=== PATIENT | female | born 1980 | race Caucasian/White ===

== ENCOUNTER 2016-11-07 13:47 | Emergency (ER) | payer OTHER ==
[2016-11-07 14:01] VITALS: BP 128/75
--- NOTE | 2016-11-07 14:10 | UC ---
Throat Pain/Nasal Irvin HPI - HPI Summary HPI Summary: SORE THROAT X 2 DAYS NO COUGH, NO NASAL CONGESTION , NO FEVER , + CHILLS, + BODY ACHES - History of Current Complaint Chief Complaint: UCRespiratory Stated Complaint: SORE THROAT Time Seen by Provider: 11/07/16 14:03 Hx Obtained From: Patient Hx Last Menstrual Period: pt on depo shot ?: No Onset/Duration: Gradual Onset, Lasting Days - 2, Still Present Severity: Moderate Cough: None Associated Signs & Symptoms: Negative: Sinus Discomfort, Nasal Discharge, Fever , Rash - Allergies/Home Medications Allergies/Adverse Reactions: Allergies Allergy/AdvReac Type Severity Reaction Status Date / Time No Known Allergies Allergy Verified 11/07/16 14:00 Home Medications: Home Medications Anxiety Med 1 tab PO DAILY 11/07/16 [History] PMH/Surg Hx/FS Hx/Imm Hx Previously Healthy: Yes Endocrine History Of: Denies: Diabetes Cardiovascular History Of: Denies: Cardiac Disorders, Hypertension Respiratory History Of: Denies: Asthma - Surgical History Surgical History: Yes Surgery Procedure, Year, and Place: appendectomy. 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 - Family History Known Family History: Negative: Diabetes - Social History Alcohol Use: None Substance Use Type: None Smoking Status (MU): Never Smoked Tobacco When Did the Patient Quit Smoking/Using Tobacco: 8 years ago Review of Systems Constitutional: Chills, Fatigue Skin: Negative Eyes: Negative ENT: Sore Throat Respiratory: Negative Cardiovascular: Negative Gastrointestinal: Negative All Other Systems Reviewed And Are Negative: Yes Physical Exam Triage Information Reviewed: Yes Appearance: Well-Appearing, No Pain Distress, Well-Nourished Vital Signs: Initial Vital Signs Temp 98.4 F 11/07/16 13:56 Pulse 81 11/07/16 13:56 Resp 15 11/07/16 13:56 BP 128/75 11/07/16 13:56 Pulse Ox 98 11/07/16 13:56 Vital Signs Reviewed: Yes Eye Exam: Normal Eyes: Positive: Conjunctiva Clear ENT Exam: Normal ENT: Positive: Pharyngeal erythema - CANKER SORES, Nasal congestion, Nasal drainage Neck: Positive: Supple, Nontender, No Lymphadenopathy Respiratory: Positive: Chest non-tender, Lungs clear, Normal breath sounds Cardiovascular: Positive: RRR, No Murmur, Pulses Normal Skin Exam: Normal Throat Pain/Nasal Course/Dx - Differential Dx/Diagnosis Provider Diagnoses: PHARYNGITIS. CANKER SORES Discharge - Discharge Plan Condition: Stable Disposition: HOME Patient Education Materials: Canker Sores (ED) Referrals: ABDULKADIR Gonzalez [Primary Care Provider] - If Needed
== END 2016-11-07 14:30 | disposition home or self-care (01) ==
LOC: UCCORT 13:47
DX: J02.9 Acute pharyngitis, unspecified (principal); K12.0 Recurrent oral aphthae; Z87.891 Personal history of nicotine dependence
CPT/HCPCS: 87651; 99211; G0463

== ENCOUNTER 2017-10-07 11:18 | Emergency (ER) | payer BC ==
[2017-10-07 11:40] VITALS: BP 141/93
--- NOTE | 2017-10-07 11:52 | UC ---
Respiratory Complaint HPI - HPI Summary HPI Summary: 36 y with one week of cough, low grade fever, and tightness in the sternal region. Myalgias and headache, cough productive of green sputum. - History of Current Complaint Chief Complaint: UCRespiratory Stated Complaint: COUGH, CHEST PAIN Time Seen by Provider: 10/07/17 11:43 Hx Obtained From: Patient Hx Last Menstrual Period: pt on depo shot ?: No Onset/Duration: Gradual Onset, Lasting Days - 5 Timing: Constant Severity Initially: Moderate Severity Currently: Moderate - increasing myalgias. Pain Intensity: 6 Character: Cough: Productive Aggravating Factors: Exertion, Deep Breaths Alleviating Factors: OTC Meds Associated Signs And Symptoms: Positive: Dyspnea, Nasal Congestion - Risk Factors Pulmonary Embolism Risk Factors: Negative Cardiac Risk Factors: Negative Pseudomonas Risk Factors: Negative - Allergies/Home Medications Allergies/Adverse Reactions: Allergies Allergy/AdvReac Type Severity Reaction Status Date / Time No Known Allergies Allergy Verified 10/07/17 11:40 Home Medications: Home Medications Dm/PE/Acetaminophen/Doxylamine [Vicks Dayquil/Nyquil Cold] 1 mis PO ONCE [History Confirmed 10/07/17] PMH/Surg Hx/FS Hx/Imm Hx Previously Healthy: Yes - Surgical History Surgical History: Yes Surgery Procedure, Year, and Place: appendectomy. 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 All Other Systems Reviewed And Are Negative: Yes Physical Exam Triage Information Reviewed: Yes Appearance: Ill-Appearing - looks unwell, fatigued. Vital Signs: Initial Vital Signs Temp 99.0 F 10/07/17 11:37 Pulse 106 10/07/17 11:37 Resp 16 10/07/17 11:37 BP 141/93 10/07/17 11:37 Pulse Ox 99 10/07/17 11:37 Eye Exam: Normal ENT: Positive: Pharynx normal, TMs normal Neck: Positive: Supple, Nontender, No Lymphadenopathy Respiratory: Positive: Lungs clear, Normal breath sounds, No accessory muscle use Cardiovascular Exam: Normal Cardiovascular: Positive: No Murmur, Pulses Normal, Tachycardia Abdomen Description: Positive: Nontender, No Organomegaly, Soft Musculoskeletal Exam: Normal Neurological Exam: Normal Psychological Exam: Normal UC Diagnostic Evaluation - Laboratory O2 Sat by Pulse Oximetry: 99 Diagnostic Studies Comment: rapid flu negative. Respiratory Course/Dx - Course Course Of Treatment: zpack for lower respiratory infection. - Differential Dx/Diagnosis Differential Diagnosis/HQI/PQRI: Asthma, Bronchitis, Lower Resp Infection Provider Diagnoses: lower respiratory infection. Chest wall pain from coughing. Discharge - Discharge Plan Condition: Stable Disposition: HOME Prescriptions: Azithromyxin LESA (NF) [Z-Lesa (Zithromax) 250 mg tabs #6] 2 tab PO .TODAY, THEN 1 DAILY #6 tab Patient Education Materials: Community Acquired Pneumonia (ED) Forms: *Work Release Referrals: ABDULKADIR Gonzalez [Primary Care Provider] - Additional Instructions: Because of worsening cough and new onset of fever, you are being treated with azithromycin for suspected early pneumonia. You can use dextromethorphan over the counter for cough suppression. I suggest ibuprofen 600 to 800mg 3 times daily for pain. Follow up if you are not seeing improvement in 3 to 4 days. Off work today.
[2017-10-07] MEDS ORDERED: Ibuprofen TAB* 600 MG PO ONE (11:53)
== END 2017-10-07 12:46 | disposition home or self-care (01) ==
LOC: UCCORT 11:18
DX: J22 Unspecified acute lower respiratory infection (principal); R07.89 Other chest pain; R05 Cough
CPT/HCPCS: 87502; 99212; A9270-GY; G0463